=== PATIENT | male | born 1995 | race Caucasian/White ===

== ENCOUNTER 2016-12-04 09:01 | Day surgery (SDC) | payer SELFPAY ==
[2016-12-04 09:12] LABS: BASOPHIL# 0.1 X 10^3uL (0.0-0.1); BASOPHILS 0.7 % (0.0-2.0); HEMATOCRIT 41.7 % (42.0-54.0); HEMOGLOBIN 14.1 g/dL (14.0-18.0); LYMPHOCYTES# 0.8 X 10^3uL (0.8-3.8); MEAN CELL VOLUME 83.6 fL (80.0-100.0); MEAN CORPUSCULAR HEMOGLOBIN 28.4 pg (29.0-35.0); MEAN PLATELET VOLUME 7.9 fL (7.4-10.4); MONOCYTES 9.3 % (2.0-10.0); NEUTROPHILS# 18.1 X 10^3uL (2.6-6.7); PLATELET COUNT 290 X 10^3uL (130-440); RED BLOOD COUNT 4.99 X 10^6uL (4.20-6.10); RED CELL DISTRIBUTION WIDTH 11.6 % (11.5-14.5)
[2016-12-04 09:17] LABS: ALKALINE PHOSPHATASE 94 U/L (38-126); AST 77 U/L (17-59); BILIRUBIN, TOTAL 0.9 mg/dL (0.2-1.3); BLOOD UREA NITROGEN 16 mg/dL (9-20); CALCIUM 9.5 mg/dL (8.4-10.2); CHLORIDE 102 mmol/L (98-107); EST GLOMERULAR FILTRATION RATE > 60 mL/min; GLUCOSE 119 mg/dL (70-100); LIPASE 34 U/L (23-300); POTASSIUM 3.6 mmol/L (3.5-5.1); SODIUM 141 mmol/L (137-145)
[2016-12-04 09:18] LABS: INR 1.4
[2016-12-04 09:22] LABS: ETHYL ALCOHOL < 10 mg/dL (<10)
[2016-12-04 09:29] LABS: ALBUMIN 4.4 g/dL (3.5-5.0); ALT 37 U/L (21-72); BILIRUBIN, DIRECT 0.1 mg/dL (0.0-0.4); TOTAL PROTEIN 7.7 g/dL (6.3-8.2)
[2016-12-04 09:32] LABS: ACETAMINOPHEN < 10.0 ug/mL (10.0-30.0); SALICYLATE < 1.0 mg/dL (<20.0)
[2016-12-04] MEDS ORDERED: ceFAZolin 1 GM/10 ML VIAL ONE ×2 (09:41→11:44)
[2016-12-04] MEDS ORDERED: NORMAL SALINE 100 ML IV ONE (09:42)
[2016-12-04 10:01] LABS: THYROID STIMULATING HORMONE 1.66 uIU/mL (0.47-4.68)
[2016-12-04] MEDS ORDERED: ONDANSETRON HCL 4 MG/2 ML VIAL ONE (10:12)
[2016-12-04] MEDS ORDERED: FENTANYL 100 MCG/2 ML VIAL ONE (10:12)
[2016-12-04] MEDS ORDERED: LIDOCAINE HCL 4% 160 MG/4 ML KIT ONE (10:12)
[2016-12-04] MEDS ORDERED: SUCCINYLCHOLINE CHLORIDE 200 MG/10 ML VIAL ONE (10:13)
[2016-12-04] MEDS ORDERED: KETOROLAC TROMETHAMINE 30 MG/ML VIAL ONE (10:13)
[2016-12-04] MEDS ORDERED: METOCLOPRAMIDE HCL 10 MG/2 ML VIAL ONE (10:13)
[2016-12-04] MEDS ORDERED: DEXAMETHASONE 10 MG/ML VIAL ONE (10:13)
--- NOTE | 2016-12-04 10:54 | CT REPORT ---
HISTORY: Trauma COMPARISON: None. TECHNIQUE: Axial non-contrast images obtained from skull vertex through foramen magnum. Dose reduction technique was utilized. FINDINGS: There is a 5.7 cm in diameter, 1.5 cm thick left frontal extradural hematoma. There is local mass ef fect with effacement of the cortical sulci. This is hyperdense consistent with an acute epidural lucille alexandro. There is a nondisplaced, associated, linear fracture through the left temporal and left frontal bones. There is associated soft tissue swelling and subcutaneous hematoma. There is 5 mm of midline shift. No intraparenchymal hemorrhage. There is a 3 mm thick, 10 mm in diameter indeterminate linear body along the inner margin of the epidural hematoma. This could represent a small cortical fragment. There is no hydrocephalus. No intraventricular hemorrhage. No mass lesion is identified. No intrapar enchymal mass. There are mucous retention cyst or mucosal polyps in the right maxillary and left s phenoid air cells. IMPRESSION: 1. 1.5 x 5.7 cm left frontal epidural hematoma. 2. Linear, nondepressed skull fracture in the left frontal and anterior left temporal bones. 3. 5 mL of midline shift. Critical results were communicated to TIFFANIE JACOBO MD at 12/04/2016 10:51 AM. Final Electronic Signature: This report was electronically signed by Jean Metz MD on 12/04/2016 10: 51 AM. [facility] /
--- NOTE | 2016-12-04 10:57 | CT REPORT ---
HISTORY: Trauma COMPARISON: None. TECHNIQUE: This examination was performed using automated exposure control, adjustment of mA or kV according to patient size, and/or use of iterative reconstruction technique. Axial noncontrast images of the sinus es obtained with multiplanar reformat images. FINDINGS: Paranasal sinuses are normally developed, well aerated without air-fluid level. There are rounded foc i of opacification within the posterior right maxillary sinus, posterior left sphenoid and anterior l eft sphenoid air cells consistent with mucous retention cysts or mucosal polyps. The osteomeatal uni ts are intact bilaterally. There is deviation of the nasal septum to the right. There is left tempo ral soft tissue swelling with subcutaneous hematoma. There is no facial bone fracture. There is a nondepressed, vertically oriented fracture through the a nterior most aspect of the right temporal bone extending into the right frontal bone. There is an ass ociated 1.5 x 5.7 cm left frontal epidural hematoma. IMPRESSION: 1. Left frontal epidural hematoma. 2. Nondepressed linear fracture of the left temporal and left frontal bone. 3. No facial bone fracture. 4. Mucous retention cyst or mucosal polyps in the right maxillary and less sphenoid air cells. Critical results were communicated to TIFFANIE JACOBO MD at 12/04/2016 10:55 AM. Final Electronic Signature: This report was electronically signed by Jean Metz MD on 12/04/2016 10: 55 AM. [facility] /
--- NOTE | 2016-12-04 11:00 | CT REPORT ---
HISTORY: Trauma COMPARISON: None. TECHNIQUE: This examination was performed using automated exposure control, adjustment of mA or kV according to patient size, and/or use of iterative reconstruction technique. Axial thin section images obtained f rom skull base through head of the clavicles. Sagittal and coronal reformat images obtained. FINDINGS: There is a comminuted, minimally displaced vertically oriented fracture through the anterior body of C5. There is 2 to 3 mm of distraction of the fracture fragments. There is slight anterior wedging of the C5 vertebral body. No retropulsed fragment. There is straightening of the normal cervical lordosi s. The posterior body of C5 as well as the posterior bony elements are intact and in good alignment. There is mild prevertebral soft tissue swelling. The vertebral body alignments demonstrates straigh tening of the normal cervical lordosis. No listhesis. There is no lytic or sclerotic lesion. Minera lization is normal. The central canal and neural foramina are adequately maintained. The odontoid and ring of C1 are int act. The atlantooccipital and atlantoaxial alignments are maintained. The posterior bony elements are intact. The facets are in alignment. IMPRESSION: 1. Minimally displaced, vertically oriented fracture through the anterior cortex of C5. This is consi stent with a stable fracture. No retropulsed fragment. 2. Posterior bony elements are intact and in alignment. 3. Central canal and neural foramina are maintained. Critical results were communicated to TIFFANIE JACOBO MD at 12/04/2016 10:58 AM. Final Electronic Signature: This report was electronically signed by Jean Metz MD on 12/04/2016 10: 58 AM. [facility] /
--- NOTE | 2016-12-04 12:09 | PROCEDURE NOTE: Gen Surgery ---
General Surgery Procedure Note - Date of Encounter Date of Encounter: 12/04/16 - Brief Operative Note (1) Injury of thigh, left Date of procedure: 12/04/16 Pre-Op Diagnosis: Laceration and degloving injury of left thigh Post-op diagnosis: same Procedure: Washout and debridement, with closure and drainage of deep and extensive injury left thigh Implants: none Physician: PHYLICIA LEE Estimated Blood Loss: 50 Pathology: none sent X-ray taken: No Images viewed by surgeon: Yes (Head CT with frontal enhancement and subdural bleed) Sponge and instrument counts: correct Condition: stable Disposition: other (transfer to [facility] for observation of head injury) Narrative: The patient was neurologically intact and non-localizing. He was taken to the OR and placed supine under general anesthesia. The left thigh wound was prepped and draped sterilely. The wound was then irrigated with 6 liters of irrigation fluid, using the pulse lavage device. Multiple sticks and pine needles were removed manually and washed from the wound. The wound was fully explored. The superficial wound extended up to the lateral left hip, and this was cleaned out. It was hemostatic. The lateral fascia was quite lacerated and avulsed in places over the vastus lateralis and the fascia lolis was avulsed and lacerated in strands. The muscle was lacerated with exposure of the femur along its left lateral extent over 15 cm or more, and the muscle wound was thoroughly irrigated , some debridement was done, and visualized vascular ends were identified and tied with vicryl ties. The deep muscle wound was drained with a 10 mm drain brought out inferiorly, and this was secured with a silk suture. The muscle and fascia were closed with 0-vicryl suture, and this approximation closed the deep wound, but not tightly. The fascia was disrupted enough that it seemed very unlikely that he could develop increased compartment pressure. The superficial degloving injury was then addressed. The superficial tissues were thoroughly cleaned out and debrided of tissue. the skin flap was intact, and seemed broad based enough to survive. It was approximated with 2-0 vicryl sutures. A 10 mm flat drain was placed in the subcutaneous space. The deep dermis was closed with running 3-0 vicryl suture. The skin edges were abraded and could not be fully approximated in placed, but enough was done to close the dermis. The wound was dressed with bacitracin ointment and wrapped in sterile gauze. He was aroused, extubated, and taken with stable vital signs and moving all extremities on command, to the post op unit, and will be transferred to a trauma center for care of his head and thigh injury, which will likely need a secondary irrigation , debridement and closure, possibly with a vac device.
--- NOTE | 2016-12-04 13:09 | ER NURSING DOCUMENTATION ---
Nurse's Notes [facility] Name:Jim Liu Age:21 yrs Sex:Male :1995 Arrival Date:12/04/2016 Time:09:01 BedTrauma-A Private MD: Diagnosis:Intracranial Bleed: Subdural;Cervical Spine Compression Fracture;Skull Fracture;Thigh Laceration Presentation: 12/04 09:04 Acuity: CADY 2 sc1 09:04 Presenting complaint: EMS states: EMS was paged out for a pt who left leg injury. he st showed up at a house up by Veronique senior. pt has a large and deep left leg lac and aberrations to the face. pt told EMS that he was jumping from a rock to a tree at 3 AM and missed his landing he thinks he passed out too. (EMS did states that some of his story keeps changing). He denied any drugs or ETOH when EMS asked. Care prior to arrival: IV initiated. gauge and site 18 gages in bilateral ACs. Mechanism of Injury: fall. 09:04 Method Of Arrival: EMS: 410 st 09:19 Transition of care: patient was not received from another setting of care. Trauma Activation: Physician: ED Attending; Name: Elvia; Notified At: 08:48; Arrived At: 08:48 Physician: ED RN; Name: Kristy; Notified At: 08:48; Arrived At: 08:49 Physician: Rad Cocktail Server; Name: Britney; Notified At: 08:48; Arrived At: 08:45 Physician: Motor Vehicle License Clerk; Name: Oseas Hull; Notified At: 08:48; Arrived At: 08:49 Physician: RN (MS, OR, NLC); Name: Parvin Bell; Notified At: 08:48; Arrived At: 08:50 Historical: - Allergies: No known drug Allergies; - Home Meds: 1. None - PMHx: None; - PSHx: arm reduction; - Tetanus: < 10 years < 10 years. - Ebola Screening: : Patient denies exposure to infectious person. Patient denies travel to an Ebola-affected area in the 21 days before illness onset. . - Social history: Smoking status: Patient states was never smoker of tobacco. Patient/guardian denies using alcohol, marijuana. Screenin:18 Abuse screen: Denies threats or abuse. Denies injuries from another. Nutritional st screening: No deficits noted. Tuberculosis screening: No symptoms or risk factors identified. 09:21 Infectious Disease Risk None. st Primary Survey: 09:16 Breathing/Chest: Respiratory pattern: regular, Respiratory effort: spontaneous, st unlabored. Circulation: Skin color: pink. Assessment: 09:00 General: Appears uncomfortable, Behavior is cooperative. Pain: Complains of pain in st face and lateral aspect of left thigh Pain currently is 3 out of 10 on a pain scale. Pain began 6 hours ago. Cardiovascular: No deficits noted. Cardiovascular: Capillary refill < 3 seconds Heart tones present Pulses are palpable in right radial artery, left radial artery and left dorsalis pedis artery. Respiratory: Airway is patent Respiratory effort is even, unlabored, Respiratory pattern is regular, symmetrical. GI: Abdomen is flat, Abd is soft and non tender X 4 quads. Musculoskeletal: muscle visible threw cut in left upper leg. pt was able to bear weight on the left leg. Pt is able to move all exstremities. Injury Description: Laceration sustained to lateral aspect of left thigh is contaminated, full thickness, > 20 cm long, not bleeding, was sustained 6-12 hours ago. 09:00 Injury Description: Abrasion sustained to left antecubital area and left elbow st scratches to arms legs and chest. 09:00 Neuro: Level of Consciousness is awake, alert, Oriented to person, place, time, event. st 09:20 General: pt last eat early last night and last drank at about 8:30. st 09:40 General: officers state that pt admitted to them that he was trying to hurt him self.. st 09:44 General: helicopter placed on ground stand by @ 8:43 by EMS then upgraded to air stand st by EMS helicopter stood down shortly after pt arrived to the ED.. 09:45 General: pt states his pain is the same. pt resting quetly.. st 10:17 General: pt denies that there was any self harm intents today when directly asked. . st 10:30 General: pt will return to the ED post OR washout.. st 11:51 General: still waiting for pt to get out of surgery.. st 12:25 General: Rigoberto Koenig called and wanted an upgrade to flights after looking at the images st and deciding the bleed is probable epidural in origin. [facility] is coordinating getting a helicopter coming. pt will come strait from [facility]. Dr. Gan informed of change. COMPETITIVE SHOPPER gave report. . Vital Signs: 09:04 BP 135 / 78 (auto/); st 09:07 Pulse 91 MON; Resp 16; Pulse Ox 96% ; Weight 90.72 kg; st 09:17 BP 130 / 80 (auto/); st 09:22 Pulse 88 MON; Resp 27; Pulse Ox 95% ; Pain 3/10; st 10:03 BP 131 / 77 (auto/); st 10:07 Pulse 85 MON; Resp 18; Pulse Ox 97% ; st 10:08 Temp 99.1; st [place] Coma Score: 10:17 Eye Response: spontaneous(4). Verbal Response: oriented(5). Motor Response: obeys st commands(6). Total: 15. Trauma Score (Adult): 09:07 Eye Response: spontaneous(1); Verbal Response: oriented(1); Motor Response: obeys st commands(2); Systolic BP: > 89 mm Hg(4); Respiratory Rate: 10 to 29 per min(4); Duran Score: 15; Trauma Score: 12 ED Course: 09:02 Patient arrived in ED. ama 09:04 Kristy Frazier, RN is Primary Nurse. st 09:04 Triage completed. sc1 09:09 Luis Gan MD is Attending Physician. sc 09:18 Valuables Remains with patient Patient has correct armband on for positive st identification. Placed in gown. Bed in low position. 09:22 monitor technician on. Pulse ox on. NIBP on. st 09:[address] ms 09:40 Patient moved back from CT. ms 10:[address] Administered Medications: 09:37 Drug: Ancef 1 grams; Route: IVPB; Site: right antecubital; st 10:29 Follow up: IV Status: Infusion continued upon admission st Output: 10:17 Urine: 0ml; Total: 0ml. st Outcome: 10:18 Admitted to OR accompanied by nurse, via stretcher. st 10:18 Condition: stable 10:18 Report given to Rosenda THOMAS in the OR. 10:18 Instructed on need for OR 11:18 Transferred: Patient will be transferred to: [facility]. Facility st Acceptance Time: December 04, 2016 at 11:18 Patient's face sheet was faxed to accepting facility. Face Sheet included patient's name, address, age, gender, contact information and insurance information. Patient will be transported by: [facility] ground. 11:22 ER care complete, transfer ordered by MD. patel 11:52 Discharge F/U Call: Unable to reach: no answer st 12:31 Transferred: Patient will be transported by: [facility]. st 12:31 Transferred: Nurse and Physician Charting and Notes were sent to Accepting Facility. st All tests and/or procedures with results, if applicable, were sent to accepting facility. 13:09 Patient [address] the ED. st Signatures: Kristy Frazier RN RN Vandana Veronica RN RN sc1 Luis Gan MD MD sc Strickland, Mary ms Averdick, Andrew, Reg Reg ama
--- NOTE | 2016-12-04 13:09 | ER PHYSICIAN DOCUMENTATION ---
Physician Documentation [facility] Name:Jim Liu Age:21 yrs Sex:Male :1995 Arrival Date:12/04/2016 Time:09:01 BedTrauma-A Private MD: Luis Bravo Disposition: 12/04/16 11:[address] [facility]. Diagnosis are Intracranial Bleed: Subdural, Cervical Spine Compression Fracture, Skull Fracture, Thigh Laceration. - Reason for transfer: Specialty. - Accepting physician is Dr. Avalos. - Condition is Critical. - Problem is new. - Symptoms have improved. COBRA Form completed? Yes Transfer - Mode of Transportation Ambulance HPI: 12/04 11:01 This 21 yrs old Male presents to ER via EMS with complaints of Trauma sc Complaint. 11:01 Details of fall: The patient fell from a height, out of a tree, approximately 15 feet. sc Onset: The symptom(s)/episode began/occurred at 03:00. Associated injuries: The patient sustained injury to the head, abrasion, contusion. Associated signs and symptoms: Pertinent negatives: Loss of consciousness: the patient experienced loss of consciousness, for an unknown period of time. Severity of symptoms: At their worst the symptoms were moderate. denied SI but vague on details, AxOx3, . Historical: - Allergies: No known drug Allergies; - Home Meds: 1. None - PMHx: None; - PSHx: arm reduction; - Tetanus: < 10 years < 10 years. - Ebola Screening: : Patient denies exposure to infectious person. Patient denies travel to an Ebola-affected area in the 21 days before illness onset. . - Social history: Smoking status: Patient states was never smoker of tobacco. Patient/guardian denies using alcohol, marijuana. ROS: 11:15 Constitutional: Negative for fever, chills, and weight loss. sc Eyes: Negative for injury, pain, redness, and discharge. ENT: Negative for injury, pain, and discharge. Cardiovascular: Negative for chest pain, palpitations, and edema. Respiratory: Negative for shortness of breath, cough, wheezing, and pleuritic chest pain. Abdomen/GI: Negative for abdominal pain, nausea, vomiting, diarrhea, and constipation. Back: Negative for injury and pain. 11:15 Skin: Negative for injury, rash, and discoloration. sc 11:15 Neck: Positive for injury or acute deformity, tenderness. 11:15 MS/extremity: Positive for injury or acute deformity, abrasion, laceration. 11:15 Neuro: Positive for altered mental status. 11:15 Psych: Negative for drug dependence, alcohol dependence, suicidal ideation. Exam: Constitutional: This is a well developed, well nourished patient who is awake, alert, and in no acute distress. Eyes: Pupils equal round and reactive to light, extra-ocular motions intact. Lids and lashes normal. Conjunctiva and sclera are non-icteric and not injected. Cornea within normal limits. Periorbital areas with no swelling, redness, or edema. ENT: Nares patent. No nasal discharge, no septal abnormalities noted. Tympanic membranes are normal and external auditory canals are clear. Oropharynx with no redness, swelling, or masses, exudates, or evidence of obstruction, uvula midline. Mucous membranes moist. Chest/axilla: Normal chest wall appearance and motion. Nontender with no deformity. No lesions are appreciated. Cardiovascular: Regular rate and rhythm with a normal S1 and S2. No gallops, murmurs, or rubs. Normal PMI, no JVD. No pulse deficits. Respiratory: Lungs have equal breath sounds bilaterally, clear to auscultation and percussion. No rales, rhonchi or wheezes noted. No increased work of breathing, no retractions or nasal flaring. Abdomen/GI: Soft, non-tender, with normal bowel sounds. No distension or tympany. No guarding or rebound. No evidence of tenderness throughout. Back: No spinal tenderness. No costovertebral tenderness. Full range of motion. 11:16 Skin: Warm, dry with normal turgor. Normal color with no rashes, no lesions, and no sc evidence of cellulitis. 11:16 Head/face: Noted is abrasion(s), contusion, hematoma. 11:16 Neck: External neck: no acute changes, C-spine: vague left lateral neck soreness. 11:16 Musculoskeletal/extremity: Extremities: grossly normal except: abrasion, laceration, huge avulsion flap involving much of thigh with exposed and contaminated musculature, ROM: full active range of motion, full passive range of motion, Circulation is intact in all extremities. Sensation intact. ambulated to help for one hour 11:16 Neuro: Orientation: is normal, Mentation: slow to respond, Memory: unable to test, Cranial nerves: CN II- XII are normal as tested, Cerebellar function: no acute changes, Motor: is normal, Sensation: is normal, Deep tendon reflexes are 2+ (normal) in the bilateral brachioradialis, bicep, tricep and patellar and Achilles tendons. 11:19 Abdomen/GI: FAST neg. ut Vital Signs: 09:04 BP 135 / 78 (auto/); st 09:07 Pulse 91 MON; Resp 16; Pulse Ox 96% ; Weight 90.72 kg; st 09:17 BP 130 / 80 (auto/); st 09:22 Pulse 88 MON; Resp 27; Pulse Ox 95% ; Pain 3/10; st 10:03 BP 131 / 77 (auto/); st 10:07 Pulse 85 MON; Resp 18; Pulse Ox 97% ; st 10:08 Temp 99.1; st [place] Coma Score: 10:17 Eye Response: spontaneous(4). Verbal Response: oriented(5). Motor Response: obeys st commands(6). Total: 15. Trauma Score (Adult): 09:07 Eye Response: spontaneous(1); Verbal Response: oriented(1); Motor Response: obeys st commands(2); Systolic BP: > 89 mm Hg(4); Respiratory Rate: 10 to 29 per min(4); Duran Score: 15; Trauma Score: 12 MDM: 09:10 Patient medically screened. ut 11:19 Differential diagnosis: closed head injury, laceration, multiple trauma. Data reviewed: ut vital signs, nurses notes, lab test result(s), EKG, radiologic studies, and as a result, I will *Transfer Patient initiate a consult, with a general surgeon. Counseling: I had a detailed discussion with the patient and/or guardian regarding: the historical points, exam findings, and any diagnostic results supporting the discharge/admit diagnosis, lab results, radiology results, the need to transfer to another facility. Response to treatment: the patient's symptoms have markedly improved after treatment. Physician consultation: Dillon Gibson was called at 10:00, was contacted at 10:00, regarding patient's condition, need to come to ED to see patient, and will see patient in ED, immediately. 12:30 ED course: Consulted Dr. Gibson and Dr. Avalos regarding patient care. Dr. Lizandro Metz ut reported probable subdural and non-depressed skull fracture. We felt probable epidural and Dr. Avalos preferred air ambulance transport following control of hemorrhage and irrigation of thigh wound. . 12/04 09:12 Order name: CBC AUTO DIF, MDIF/RMOR IF IND EDKY 12/04 09:22 Order name: BASIC METABOLIC PANEL EDKY 12/04 09:22 Order name: HEPATIC PANEL EDKY 12/04 09:22 Order name: LIPASE EDKY 12/04 09:22 Order name: ETHYL ALCOHOL EDKY 12/04 09:33 Order name: SALICYLATE EDKY 12/04 09:33 Order name: ACETAMINOPHEN EDKY 12/04 09:39 Order name: PROTIME/INR EDKY 12/04 10:03 Order name: THYROID STIMULATING HORMONE EDKY 12/04 10:56 Order name: CAT SCAN; HEAD W/O CON [id number]; Complete Time: 11:22 EDKY 12/04 11:22 Interpretation: Abnormal. ut 12/04 10:58 Order name: CATSCAN;MAXILLOFAC W/O [id number]; Complete Time: 11:22 EDMS 12/04 11:22 Interpretation: Abnormal. ut 12/04 11:01 Order name: CAT SCAN; CERVICAL [id number]; Complete Time: 11:22 EDMS 12/04 11:22 Interpretation: Abnormal. ut Dispensed Medications: 09:37 Drug: Ancef 1 grams; Route: IVPB; Site: right antecubital; st 10:29 Follow up: IV Status: Infusion continued upon admission st Signatures: Kristy Frazier RN RN Luis Vazquez MD MD ut
--- NOTE | 2016-12-04 13:35 | HISTORY & PHYSICAL ---
DATE OF ADMISSION: 12/04/16 HISTORY OF PRESENT ILLNESS: The patient is a 21-year-old gentleman who is out from [place] at a camp in [place], [place] for baseball. He decided this weekend to come up camping by himself, came up to [facility] about 3 a.m. It is unclear whether he fell or intentionally leaped from a rock into a tree with a significant fall. He managed to walk out to help taking approximately 4 hours to do so. He was discovered and then brought by EMS to [facility]. At that time he was noted to have multiple scrapes and abrasions on his chest, arms and elbows, and a significant injury in the left thigh with both degloving and deep laceration. He also had some bruising to the bridge of his nose and some perioral blood consistent with epistaxis and a small contusion of the left frontal area just adjacent to the eye. He was neurologically normal, appropriate, moving all extremities, nonfocal and conversational. He did not appear intoxicated. His initial labs demonstrated negative tox screen. He had white blood cell count of 21,000, but otherwise hematocrit of 41. His liver function tests were within normal limits with slight elevation of AST/ALT at the 70s. His chemistries were unremarkable. It was unclear if he had had a loss of consciousness. A CT was done of his cervical spine. This demonstrated a minimally displaced vertically oriented fracture through anterior cortex of C5 consistent with a stable fracture, no post fragment. Otherwise everything intact. He had a plain film of the femur which demonstrated no evidence of fracture. He had a plain film of the chest with no broadening off the mediastinum or other injuries. No evidence of pneumothorax. He had a left frontal epidural hematoma. He had a nondepressed linear skull fracture of the left temporal and left frontal bone. No facial bone fracture, a mucous retention cyst or nasal polyps in the right maxilla. Because he was quite stable and demonstrated no other acute injuries, it was elected to take him for washout and debridement of the left thigh. PHYSICAL EXAMINATION GENERAL: This is a well-developed, appropriate young man, moving all extremities, complaining of left thigh pain. NECK: He denies any neck pain or neck tenderness. ABDOMEN: He has no abdominal tenderness. CHEST: He has no chest wounds or punctures. He has no crepitus in the chest. LUNGS: Clear and breath sounds equal bilaterally. EXTREMITIES: He has no fractures or injuries to his arms that I can detect. No bony deformities but does have significant abrasions in both elbows and hands. He has abrasions in both legs and then a large degloving injury with exposed muscle in the left thigh and significant injury to the thigh fascia. His pulses are brisk and intact in the left leg, in the left foot and there is no evidence of venous stasis at this time. ANALYSIS: The patient with a significant injury of the left thigh. He does have an epidural hematoma but quite small and no focal neurologic findings. He will not be anticoagulated. He will be taken to the operating room for a brief washout and closure, removal of gross contamination and drainage and debridement and then he will be transferred down to [facility] for management of his head injury with observation and for continued care of the left thigh wound. WYATT
[2016-12-06 12:49] VITALS: BP 152/92; PULSE 78; RESP 21; TEMP 100.3; O2SAT 99
--- NOTE | 2016-12-07 07:11 | RADIOLOGY REPORT ---
Limited portable views of the chest, without prior films for comparison, demonstrates the heart, vessels and lungs to be unremarkable. No infiltrate, fluid or pneumothorax is seen. IMPRESSION: Unremarkable limited portable views of the chest. MTDD
--- NOTE | 2016-12-07 07:12 | RADIOLOGY REPORT ---
Five views of the left femur demonstrate findings consistent with the extensive known lateral soft tissue injuries. No displaced bony fracture or dislocation is identified. Limited views of the joints are unremarkable. IMPRESSION: Extensive lateral soft tissue injury. No displaced bony injury is identified. If clinically indicated, further evaluation and/or follow-up may be of benefit. WYATT
== END 2016-12-04 13:15 | disposition short-term general hospital (02) ==
LOC: ER 09:01 → SDS 10:22
PROVIDERS: ATTEND Surgery
DX: S71.112A Laceration without foreign body, left thigh, initial encounter (principal); S12.400A Unspecified displaced fracture of fifth cervical vertebra, initial encounter for closed fracture; S02.0XXA Fracture of vault of skull, initial encounter for closed fracture; W14.XXXA Fall from tree, initial encounter
CPT/HCPCS: 70450; 70486; 71010; 72125; 80048; 80076; 80307; 80320; 80329; 83690; 84443; 85025; 85610; 96365; 99285; A0420; A0425; A0427; G0390; J0690; J1100; J1885; J2405; J2765; J3010